=== PATIENT | male | born 1990 | race Caucasian/White ===

== ENCOUNTER 2017-01-27 11:30 | Emergency (ER) | payer OTHER ==
[~2017-01-27] VITALS: Ht 165.1 cm; Wt 63.0 kg
[2017-01-27 11:32] VITALS: BP 111/81; PULSE 78; RESP 16; TEMP 98.9; O2SAT 98
[2017-01-27] MEDS ORDERED: TETANUS/DIPHTHERIA TOXOID ADULT 0.5 ML VIAL IM ONE (12:45)
[2017-01-27] MEDS ORDERED: LIDOCAINE HCL 1% 50 ML VIAL INFIL ONE (12:45)
[2017-01-27] MEDS ORDERED: BUPIVACAINE HCL PF 0.5% 10 ML VIAL INFIL ONE (12:45)
--- NOTE | 2017-01-27 13:13 | RADHPO ---
EXAM DATE/TIME: 01/27/2017 12:51 [place] COMPARISON: No previous studies available for comparison. INDICATIONS : Patient had third digit of left foot smashed by a front end loaded of a tractor at work today. MEDICAL HISTORY : None. SURGICAL HISTORY : None. ENCOUNTER: Initial ACUITY: 1 day PAIN SCORE: 7/10 LOCATION: Left Third digit of foot. FINDINGS: Two view examination of the left foot demonstrates no dislocation, or fracture. Mild inflammation and tissue deformity is seen of the tuft of the third digit. The calcaneus is intact. Bony mineralizat ion is normal. CONCLUSION: Soft tissue injury to the third toe. No evidence of fracture or dislocation. Luc Castañeda MD on January 27, 2017 at 13:10 Board Certified Radiologist. This report was verified electronically.
[2017-01-27] MEDS ORDERED: CEPH-460 PO (13:33)
--- NOTE | 2017-01-27 13:33 | PD ---
HPI Chief Complaint: Injury Time Seen by Provider: 12:30 Travel History International Travel<30 days: No Contact w/Intl Traveler<30days: No Traveled to known affect area: No History of Present Illness HPI 26-year-old male presents to the emergency room for evaluation of left third toe pain, swelling, and bleeding after injuring it just prior to arrival while at work. Patient dropped a large bucket on his toe. He reports moderate pain. States he took his boot off, saw his sock was saturated in blood, and came straight to the emergency room. Denies paresthesias. Denies any other injuries. Unknown last tetanus. He did not have steel toe boots on. PFS Past Medical History Medical History: Denies Significant Hx Tetanus Vaccination: Unknown ?: Not Social History Alcohol Use: Yes (OCC) Tobacco Use: Yes (09/22 PPD) Substance Use: No Allergies-Medications (Allergen,Severity, Reaction): Coded Allergies: No Known Allergies (Unverified , 01/27/17) Reported Meds & Prescriptions Reported Meds & Active Scripts Active Keflex (Cephalexin) 500 Mg Cap 500 Mg PO Q6H 7 Days Review of Systems Except as stated in HPI: all other systems reviewed are Neg Physical Exam Narrative GENERAL: Well-nourished, well-developed male in no acute distress. Afebrile. SKIN: Focused skin assessment warm/dry. Mild superficial abrasions of the left second and fourth toes. HEAD: Normocephalic. EYES: No scleral icterus. No injection or drainage. NECK: Supple, trachea midline. No JVD or lymphadenopathy. CARDIOVASCULAR: Regular rate and rhythm without murmurs, gallops, or rubs. EXTREMITY: Left third toe is mildly tender to palpation. Full range of motion in all joints. Mild edema at the proximal toe. Less than 2 second capillary refill distally. There is a complete nail avulsion with nail bed laceration of the left third toe. PSYCHIATRIC: No delusional thought processes. No hallucinations. Data Data Last Documented VS Vital Signs Date Time Temp Pulse Resp B/P Pulse Ox O2 Delivery O2 Flow Rate FiO2 01/27/17 11:32 98.9 78 16 111/81 98 Orders Bupivacaine Pf 0.5% Inj (Marcaine Pf 0.5 (01/27/17 12:45) Lidocaine 1% Inj (50 Ml) (Xylocaine 1% I (01/27/17 12:45) Tetanus/Diphtheria Tox Adult (Tetanus/Di (01/27/17 12:45) Foot, Limited (2vws) (01/27/17 ) Splint Or Brace Apply/Monitor (01/27/17 13:33) Shoe Cast (01/27/17 ) MDM Medical Decision Making Medical Screen Exam Complete: Yes Emergency Medical Condition: Yes Medical Record Reviewed: Yes Differential Diagnosis Avulsion versus abrasion versus fracture versus contusion versus laceration Narrative Course 26-year-old male presents to the emergency room for evaluation of left third toe nail avulsion that occurred just prior to arrival at work. A large bucket fell on his foot and he was not wearing steel toed boots. He reports immediate pain and bleeding. Unknown last tetanus. Tetanus was updated. Denies paresthesias. Physical exam reveals complete avulsion of the nail and laceration of the nailbed. There are several superficial abrasions and the surrounding toes. Less than 2 second capillary refill distally. Full range of motion of the toe. Mildly tender to palpation. Toe is bleeding moderate amount. Hemostasis was achieved. X-rays negative for fracture. Vital signs stable. Area was thoroughly cleansed and absorbable sutures were placed. Patient was given wound care instructions and prescription for Keflex. Told to follow up with a travel registered nurse icu for possible plastic surgery to fix nail avulsion. He understands and agrees to plan. Procedures Procedure Narrative LACERATION LOCATION: Left third toe nailbed LENGTH: 1 cm NUMBER OF STITCHES/NAN: 2 simple interrupted REPAIR: The area of the laceration was prepped with Betadine and sterilely draped. The laceration was infiltrated with 1% lidocaine and 0.5% bupivacaine. The wound was copiously irrigated and explored without evidence of foreign body, tendon injury or neurovascular injury. The wound was closed using 5-0 Vicryl. This was a single layer repair. A sterile dressing was applied. The patient was advised to keep the dressing clean and dry. Patient tolerated the procedure well. Diagnosis Primary Impression: Nail avulsion of toe Qualified Code: S91.209A - Nail avulsion of toe, initial encounter Referrals: [employer] Patient Instructions: General Instructions, Nail Avulsion (ED) Additional Instructions: Rest and drink plenty of fluids. Take Keflex as directed, until gone. Keep wound clean and dry. Follow up with a travel registered nurse icu. Return to emergency room for worsening symptoms, as discussed. Med/Other Pt SpecificInfo: Prescription(s) given Scripts Cephalexin (Keflex)500 Mg Fpa740 Mg PO Q6H 7 Days Ref 0 Prov:Venice Sweeney MD 01/27/17 Disposition: 01 DISCHARGE HOME Condition: Stable Nohemi Burk January 27, 2017 13:33
== END 2017-01-27 13:55 | disposition home or self-care (01) ==
LOC: PHEFT 11:30
DX: S91.215A Laceration without foreign body of left lesser toe(s) with damage to nail, initial encounter (principal); F17.200 Nicotine dependence, unspecified, uncomplicated; W22.8XXA Striking against or struck by other objects, initial encounter; Y99.0 Civilian activity done for income or pay; Z23 Encounter for immunization
CPT/HCPCS: 12001; 73620; 90471; 90714; 99283; L3260